=== PATIENT | male | born 2000 | race Asian ===

== ENCOUNTER 2023-05-07 11:50 | Emergency (ER) | payer OTHER ==
--- NOTE | 2023-05-07 12:18 | XRAY Report ---
PROCEDURE: Wrist 3 View RT INDICATIONS: INJURED/FELL R WRIST/ PAIN +TENDERNESS TECHNIQUE: 3 views of the wrist were acquired. COMPARISON: None. FINDINGS: Bones: No fractures or dislocations. No suspicious bony lesions. Soft tissues: No suspicious soft tissue calcifications or masses. IMPRESSION: No visualized acute fracture or dislocation. However, occult injury cannot be excluded. Recommend paige rt interval imaging follow-up in 7-10 days as clinically indicated for additional evaluation. Reviewed by: Cathy Potter MD on 05/07/2023 12:16 PM PDT Approved by: Cathy Potter MD on 05/07/2023 12:16 PM PDT Station ID: [id number]
--- NOTE | 2023-05-07 12:54 | ED Physician Documentation ---
PD HPI UPPER EXT INJURY - Stated complaint Stated Complaint: R ARM PX - Chief complaint Chief Complaint: Ext Problem - History obtained from History obtained from: Patient - History of Present Illness Location: Right, Wrist Type of injury: Fall Where injury occurred: Other (volleyball) Timing - onset: Today Timing - duration: Hours (1) Timing - details: Abrupt onset Pain level max: 7 Pain level now: 6 Improved by: Rest, Ice, Immobilization Worsened by: Moving, Palpating Associated symptoms: Swelling. No: Weakness, Numbness, Tingling, Discolored Contributing factors: No: Anticoagulated, Prior ortho surgery Recently seen: Not recently seen - Additonal information Additional information: Pt fell backward and landed on the R wrist while playing volleyball. Review of Systems Constitutional: denies: Fever, Chills Respiratory: denies: Cough GI: denies: Vomiting, Diarrhea Skin: denies: Rash Musculoskeletal: denies: Neck pain, Back pain Neurologic: denies: Headache PD PAST MEDICAL HISTORY - Past Medical History Past Medical History: No Cardiovascular: None Respiratory: None Neuro: None Endocrine/Autoimmune: None GI: None : None HEENT: None Psych: None Musculoskeletal: None Derm: None - Past Surgical History Past Surgical History: No - Present Medications Home Medications: Ambulatory Orders Medication Instructions Recorded Confirmed No Known Home Medications 05/07/23 05/07/23 - Allergies Allergies/Adverse Reactions: Allergies Allergy/AdvReac Type Severity Reaction Status Date / Time No Known Drug Allergies Allergy Verified 05/07/23 12:02 - Social History Does the pt smoke?: No Smoking Status: Never smoker Does the pt drink ETOH?: No Does the pt have substance abuse?: No - Immunizations Immunizations are current?: Yes - POLST Patient has POLST: No PD ED PE NORMAL - Vitals Vital signs reviewed: Yes - General General: Alert and oriented X 3, No acute distress - HEENT HEENT: Atraumatic, PERRL, Moist mucous membranes - Neck Neck: Supple, no meningeal sign, No bony TTP - Cardiac Cardiac: RRR - Respiratory Respiratory: No respiratory distress, Clear bilaterally - Derm Derm: Warm and dry - Extremities Extremities: Other (R wrist - no bony tenderness, no snuffbox tenderness. NVI. No deformity. Pain present with AROM.) - Neuro Neuro: Alert and oriented X 3 - Psych Psych: Normal mood, Normal affect Results - Vitals Vitals: Vital Signs - 24 hr 05/07/23 05/07/23 11:54 13:06 Temperature 37.1 C Heart Rate 103 H 95 Respiratory 18 15 Rate Blood Pressure 116/71 115/70 O2 Saturation 100 98 Oxygen O2 Source Room air PD Medical Decision Making - ED course Complexity details: reviewed results, re-evaluated patient, considered differential, d/w patient ED course: 22-year-old male with a right wrist sprain. No acute findings on x-ray. No snuffbox tenderness. No evidence of scaphoid fracture. Placed in a Velcro splint for comfort. Declines pain medication here for home. We will have him follow-up with his PCP for further care. Patient counseled regarding signs and symptoms for which I believe and urgent re-evaluation would be necessary. Patient with good understanding of and agreement to plan and is comfortable g oing home at this time This document was made in part using voice recognition software. While efforts are made to proofread this document, sound alike and grammatical errors may occur. Departure - Departure Disposition: 01 Home, Self Care Clinical Impression: Right wrist sprain Qualifiers: Encounter type: initial encounter Qualified Code(s): S63.501A - Unspecified sprain of right wrist, initial encounter Condition: Good Instructions: ED Sprain Wrist Follow-Up: your,doctor in 1 week [Other] Comments: Your x-ray does not show any fractures today. You can use the splint as needed for comfort. You can use Motrin or Tylenol as needed for pain. Usually this will heal in 1 to 2 weeks. Please follow-up with your flight surgeon for further care. Forms: PCP List Discharge Date/Time: 05/07/23 13:07
[2023-05-07 13:08] VITALS: BP 115/70; O2SAT 98
== END 2023-05-07 13:07 | disposition home or self-care (01) ==
LOC: ED 11:50
DX: S63.501A Unspecified sprain of right wrist, initial encounter (principal); W19.XXXA Unspecified fall, initial encounter; Y93.68 Activity, volleyball (beach) (court); Y92.318 Other athletic court as the place of occurrence of the external cause
CPT/HCPCS: 99283

== ENCOUNTER 2024-01-02 20:58 | Emergency (ER) | payer OTHER ==
[2024-01-02 21:12] VITALS: O2SAT 97
[2024-01-02] MEDS: IBUPROFEN 600 MG TABLET PO STA (21:29)
[2024-01-02 23:16] VITALS: BP 126/75
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
[2024-01-03] MEDS: BACITRACIN ZINC OINT 1 PACKET TOP STA (00:12)
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
== END 2024-01-03 00:35 | disposition home or self-care (01) ==
LOC: EDUNIT# → ED 20:58
DX: T14.8XXA Other injury of unspecified body region, initial encounter (principal); M79.631 Pain in right forearm; M25.551 Pain in right hip; R07.81 Pleurodynia; V28.49XA Other motorcycle driver injured in noncollision transport accident in traffic accident, initial encounter; Y92.410 Unspecified street and highway as the place of occurrence of the external cause; Z87.891 Personal history of nicotine dependence
CPT/HCPCS: 71045; 73090; 73110; 73502; 99283; A9270